=== PATIENT | male | born 1965 | race Caucasian/White ===

== ENCOUNTER 2019-04-13 21:46 | Emergency (ER) | payer OTHER, SELFPAY ==
[2019-04-13 21:56] VITALS: BP 143/85; PULSE 76; RESP 15; TEMP 36.6; O2SAT 98; BMI 32.1
[2019-04-13 22:07] LABS: Add Manual Diff / Slide Review NO; Basophils Absolute Auto 100 /uL (0-100); Basophils Percent Auto 1.6 % (0-2); Eosinophils Absolute Auto 200 /uL (0-450); Eosinophils Percent Auto 2.7 % (2-4); Hematocrit 48.3 % (41-53); Hemoglobin 16.4 g/dL (13.5-17.5); Lymphocytes Absolute Auto 1200 /uL (1100-4500); Mean Corpuscular HGB Conc 33.9 % (30-36); Mean Corpuscular Hemoglobin 30.4 PG (26-34); Mean Corpuscular Volume 89.6 fL (80-100); Monocytes Absolute Auto 800 /uL (0-900); Monocytes Percent Auto 10.8 % (3-14); Neutrophils Absolute Auto 5000 /uL (1500-7000); Neutrophils Percent Auto 68.9 % (50-75); Platelet Count 262 X10^3/uL (150-400); Red Blood Cell Count 5.38 X10^6/uL (4.5-5.9); Red Cell Distribution Width 12.4 % (11.6-14.8); White Blood Cell Count 7.2 X10^3/uL (4.5-11.0)
[2019-04-13 22:09] LABS: INR 0.9 (0.9-1.3); Prothrombin Time 10.5 SECONDS (10.1-12.7)
[2019-04-13 22:11] LABS: PTT Partial Thromboplastin Tim 35 SECONDS (26.4-36.2)
[2019-04-13 22:13] LABS: Alanine Aminotransferase 39 IU/L (21-72); Albumin 4.4 g/dL (3.5-5.0); Albumin Globulin Ratio 1.3 (1.0-2.8); Alkaline Phosphatase 95 U/L (38-126); Aspartate Aminotransferase 33 IU/L (17-59); BUN Creatinine Ratio 25.7 (6-22); Bilirubin Total 0.9 mg/dL (0.2-1.3); Blood Urea Nitrogen 18 mg/dL (9-20); Calcium 9.3 mg/dL (8.4-10.2); Carbon Dioxide 29 mmol/L (22-32); Chloride 102 mmol/L (98-107); Estimated Glomerular Filt Rate > 60.0 mL/min (>60); Globulin 3.3 g/dL (1.7-4.1); Glucose 94 mg/dL (70-100); HEMOLYSIS < 15 (0-50); Lipase 478 U/L (23-300); Potassium 4.3 mmol/L (3.4-5.1); Sodium 139 mmol/L (137-145); Total Protein 7.7 g/dL (6.3-8.2)
[2019-04-13 22:56] VITALS: BP 129/73; PULSE 81; RESP 17; O2SAT 100
--- NOTE | 2019-04-13 23:10 | ED.ABDPAIN ---
HPI - Abdominal Pain General Chief Complaint: Abdominal Pain Stated Complaint: Abd pain,n/v/d Time Seen by Provider: 04/13/19 23:02 Source: patient Mode of arrival: Ambulatory Limitations: no limitations History of Present Illness HPI narrative: This is a 53-year-old male comes to the emergency department with complaint of abdominal pain. patient states he has had symptoms for a couple days. Started sort of on Wednesday little bit more on Wednesday. He has had a couple episodes of dry heaves but not consistently. He has had soft stools twice daily typically. There sort of diarrhea like but not black or bloody that he has appreciated. He states they are just sort of brown. Denies any specific location of his abdominal pain sort of changes in his crampy in moves throughout. Patient states pretty mild at this time. He has not had any urinary issues, no fevers or chills. Patient has a history significant for melanoma requiring surgery and lymph node removal on the left chest patient states he is regular surveillance with CT scans his most recent was a month or 2 ago. He does not smoke but does chew tobacco, 1 beer monthly, no illicit. [facility] Related Data Previous Rx's Medication Instructions Recorded citalopram [Celexa] 20 mg PO QDAY #30 tab 03/26/16 prednisone 10 mg PO QDAY #21 tab 03/26/16 Allergies Allergy/AdvReac Type Severity Reaction Status Date / Time hydrocodone AdvReac Unknown PALPITATION Verified 04/13/19 21:56 S Review of Systems Review of Systems ROS Unobtainable: All systems reviewed & are unremarkable except as noted in HPI and below PFSH Medical History (Updated 04/14/19 @ 00:48 by Rosalia Villavicencio DO) Melanoma (Acute) Social History Smoking Status: Unknown if ever smoked Social History (Updated 04/13/19 @ 23:17 by Rosalia Villavicencio DO) marital status: Smoking Status: Unknown if ever smoked Smokeless tobacco user: chewing tobacco alcohol intake: current substance use type: does not use Exam Narrative Exam Narrative: GENERAL: Alert and oriented x three, obese male in no acute distress. HEENT: Head normocephalic, atraumatic, EOMI, pupils reactive, face symmetric, moist mucous membranes NECK: Supple, full range of motion CARDIOVASCULAR: Regular rate and rhythm without murmurs, rubs or gallops. RESPIRATORY: Breath sounds equal bilaterally, no wheezes rales or rhonchi. ABDOMEN: Soft, nontender to palpation. Normoactive bowel sounds all 4 quadrants. No guarding or rebound, rigidity, no mass. per atrial style fast. : No CVA tenderness EXTREMITIES: Normal range of motion. Neurovascularly intact NEUROLOGICAL: Cranial nerves II through XII grossly intact. Moving all extremities SKIN: Warm, dry, no petechiae, no rashes or lesions. Initial Vital Signs Initial Vital Signs: Vital Signs Temperature 97.9 F 04/13/19 21:56 Pulse Rate 76 04/13/19 21:56 Respiratory Rate 15 04/13/19 21:56 Blood Pressure 143/85 H 04/13/19 21:56 Pulse Oximetry 98 04/13/19 21:56 Course Orders Ordered: ED Orders 04/14/19 23:15 US abdomen complete Stat Discontinued Medications Ondansetron HCl (Zofran Odt Prepack) 1 bottle MISC SEEINSTR ONE Stop: 04/14/19 00:52 Last Admin: 04/14/19 00:57 Dose: 1 bottle Documented by: BRIJESH Vital Signs Vital signs: Vital Signs - 8 hr 04/13/19 22:56 04/14/19 00:32 04/14/19 01:03 Pulse Rate 81 90 71 Respiratory Rate 17 27 H 17 Blood Pressure 138/90 Blood Pressure [Right Arm] 129/73 127/76 Pulse Oximetry 100 96 97 MDM - Abdominal Pain Lab Data Attestation: I reviewed the patient's lab results. Result diagrams: 04/13/19 21:52 04/13/19 21:52 Labs: Lab Results 04/13/19 04/13/19 04/13/19 Range/Units 21:52 21:52 21:52 WBC 7.2 (4.5-11.0) X10^3/uL RBC 5.38 (4.5-5.9) X10^6/uL Hgb 16.4 (13.5-17.5) g/dL Hct 48.3 (41-53) % MCV 89.6 (80-100) fL MCH 30.4 (26-34) PG MCHC 33.9 (30-36) % RDW 12.4 (11.6-14.8) % Plt Count 262 (150-400) X10^3/uL Neut % (Auto) 68.9 (50-75) % Lymph % (Auto) 16.0 L (25-40) % [place] % (Auto) 10.8 (3-14) % Eos % (Auto) 2.7 (2-4) % Baso % (Auto) 1.6 (0-2) % Neut # (Auto) 5000 (8827-1843) /uL Lymph # (Auto) 1200 (9873-8948) /uL [place] # (Auto) 800 (0-900) /uL Eos # (Auto) 200 (0-450) /uL Baso # (Auto) 100 (0-100) /uL PT 10.5 (10.1-12.7) SECONDS INR 0.9 (0.9-1.3) APTT 35 (26.4-36.2) SECONDS Sodium 139 (137-145) mmol/L Potassium 4.3 (3.4-5.1) mmol/L Chloride 102 (98-107) mmol/L Carbon Dioxide 29 (22-32) mmol/L BUN 18 (9-20) mg/dL Creatinine 0.70 (0.66-1.25) mg/dL Estimated GFR > 60.0 (>60) mL/min BUN/Creatinine Ratio 25.7 H (6-22) Glucose 94 (70-100) mg/dL Calcium 9.3 (8.4-10.2) mg/dL Total Bilirubin 0.9 (0.2-1.3) mg/dL AST 33 (17-59) IU/L ALT 39 (21-72) IU/L Alkaline Phosphatase 95 (38-126) U/L Total Protein 7.7 (6.3-8.2) g/dL Albumin 4.4 (3.5-5.0) g/dL Globulin 3.3 (1.7-4.1) g/dL Albumin/Globulin Ratio 1.3 (1.0-2.8) Lipase 478 H (23-300) U/L [facility] Narrative Medical decision making narrative: Patient has elevated lipase of 478 otherwise normal labs. He does not admit to anything more than a beer monthly. Patient's isn't quite consistent with pancreatitis. We discussed CT versus ultrasound imaging elected to go with ultrasound at this time. He does get serial CT scans for his melanoma. He is due for his next 1 in August. Discharge Plan Departure Patient Disposition: Home Clinical Impression: Abdominal pain, Fatty liver, Elevated lipase Discharge Date/Time: 04/14/19 01:03 Instructions: DI for Abdominal Pain-Adult Activity Restrictions/Additional Instructions: Follow-up with primary care in the next 48-72 hours for recheck. Your lipase was elevated today at 478, this may be the cause of your abdominal pain. I would recommend repeat lipase with your physician at recheck. You may take Zofran 1 tablet every 6 hours for nausea. Start with a clear liquid diet if you are tolerating without any pain or nausea/vomiting you may advance your diet as tolerated. Return to the emergency department for fevers greater 100.4 F, persistent vomiting, black or bloody stools, new abdominal pain, passing out, new chest pain, shortness of breath, swelling in her extremities or other new or concerning symptoms. Prescriptions: No Action citalopram [Celexa] 20 MG tablet 20 mg PO QDAY Qty: 30 RF: 3 prednisone 10 MG tablet 10 mg PO QDAY Qty: 21 RF: 0
--- NOTE | 2019-04-13 23:47 | PC.NURSE ---
Attempted to call US multiple times since 2314. Left a message with no response. Called Ray with no response as well.
[2019-04-14 00:32] VITALS: BP 127/76; PULSE 90; RESP 27; O2SAT 96
[2019-04-14] MEDS: ONDANSETRON 4 MG ODT PREPACK 1 BOTTLE MISC (00:57)
[2019-04-14 01:03] VITALS: BP 138/90; PULSE 71; RESP 17; O2SAT 97
--- NOTE | 2019-04-14 23:15 | DI.US.S_ITS ---
PROCEDURE: US ABDOMEN COMPLETE INDICATIONS: ELEVATED LIPASE, ABDOMINAL PAIN, GENERALIZED CRAMPING TECHNIQUE: Real-time scanning was performed of the abdominal and retroperitoneal organs, with image documentation. COMPARISON: [facility], CT, CHEST/ABD/PEL WITH CONTRAST, 03/26/2017, 10:42. [facility], US, ABDOMEN COMPLETE, 03/28/2017, 1:53. FINDINGS: Liver: Liver is normal in size and demonstrates increased echotexture. There is a hypoechoic area near the randa hepatis measuring 2.8 x 2.7 x 2.8 cm, probably focal fat sparing. Gallbladder: No gallstones. No gallbladder wall thickening, pericholecystic fluid or sonographic Trevino's sign. Biliary ducts: Intrahepatic bile ducts are non-dilated. Extrahepatic bile duct caliber measures 4 mm. Normal is 6-7 mm or less in diameter, or 10 mm or less post-cholecystectomy. Pancreas: Visualized portions of the pancreas are sonographically normal. Spleen: Spleen is normal in size and homogeneous in echotexture. Kidneys: Kidneys are normal in size and echotexture. Right kidney measures 11.4 cm long; left kidney measures 11.2 cm long. No nephrolithiasis. There is trace left renal pelviectasis, which is unchanged from the last exam dated 03/28/2017. No solid masses. Aorta: Visualized aorta is normal in caliber at less than 3 cm. Iliacs: Proximal common iliac arteries are normal in caliber at less than 2.5 cm. IVC: Intrahepatic inferior vena cava is patent. Miscellaneous: No free abdominal fluid. IMPRESSION: 1. Diffusely increased hepatic echotexture. This finding is most likely secondary to hepatic fatty infiltration although other hepatocellular disease may have a similar appearance. Recommend clinical correlation. 2. A 2.8 x 2.7 x 2.8 cm hypoechoic area in the liver near the randa hepatis, most likely secondary to focal fat sparing. If the patient has known chronic liver disease, renal protocol CT or MRI is recommended for followup evaluation. 3. Trace left renal pelviectasis, unchanged from 03/28/2017. 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 Dictated by: Justin Santos M.D. on 04/14/2019 at 9:18 Approved by: Justin Santos M.D. on 04/14/2019 at 9:24
== END 2019-04-14 01:03 | disposition home or self-care (01) ==
PROVIDERS: Emergency Provider Emergency Medicine
DX: R10.9 Unspecified abdominal pain (principal); K76.0 Fatty (change of) liver, not elsewhere classified; R74.8 Abnormal levels of other serum enzymes
CPT/HCPCS: 36415; 76700; 80053; 83690; 85025; 85610; 85730; 93005; 99283; 99285